=== PATIENT | male | born 1975 | race Caucasian/White ===

== ENCOUNTER → 2017-01-11 | Outpatient (CLI) | payer OTHER ==
--- NOTE | 2017-01-12 08:59 | KCIC ---
Examination: MRI of the right knee without contrast HISTORY: History of right knee pain COMPARISON: 07/10/2014 TECHNIQUE: Multiplanar, multisequence MR imaging of the right femur performed without contrast. FINDINGS: The anterior cruciate ligament, posterior cruciate ligament appear intact. The medial meniscus, lateral meniscus are intact. Extensor mechanism is intact. The medial collateral ligament is intact. The popliteus tendon appears intact. The lateral collateral ligament is intact. There is scarring changes are identified at the attachment of the biceps tendon and the lateral collateral ligament to the fibular head likely due to prior surgery. Small amount of fluid identified superficial to the lateral collateral ligamentous complex. The medial retinaculum, lateral retinaculum appears intact. Small knee joint effusion identified. Mild soft tissue edema identified superficial to the patella and infrapatellar tendon. The cartilage in the medial, lateral, patellofemoral compartments grossly appears unremarkable. IMPRESSION: 1. No evidence of internal derangement of the knee. 2. There is soft tissue irregularity identified at the distal attachment of the biceps tendon and the lateral collateral ligament to the fibula likely scarring change with small amount of edema identified superficial to the this region. 3. Minimal soft tissue edema identified anterior to the patella and infrapatellar tendon, nonspecific edema. 4. Minimal knee joint effusion. Electronically signed by: Jaspreet Flanagan MD (01/12/2017 8:55 AM) [id number]
== END | disposition home or self-care (01) ==
LOC: KCIC MRI 17:00
PROVIDERS: ATTEND Physician Assistant Medical
DX: M25.561 Pain in right knee (principal); M25.461 Effusion, right knee
CPT/HCPCS: 73721

== ENCOUNTER → 2021-04-18 | Outpatient (CLI) | payer OTHER ==
--- NOTE | 2021-04-18 14:04 | KCIC ---
MRI of the cervical spine without contrast 04/18/2021 CLINICAL HISTORY: Neck pain. History of previous cervical fusion. Left shoulder pain and left arm num bness for 2 weeks. TECHNIQUE: Unenhanced T1-weighted, T2-weighted and inversion recovery sagittal and gradient echo and T2-weighted axial images of the cervical spine were obtained. FINDINGS: There is mild straightening of the normal cervical lordosis. The patient is post anterior d iscectomy and fusion using an anterior plate, bone screws and bone graft material at C6-7. Degenerati ve signal changes are seen involving the remaining discs of the cervical spine. Degenerative signal c hanges are seen within the marrow surrounding these discs. Loss of height of the C5-6 and C7-T1 discs is noted. No area of abnormal signal intensity is seen involving the cervical spinal cord. At the C2-3, C3-4 and C4-5 disc spaces there are minimal to mild generalized disc bulges. Degenerativ e changes are seen involving the uncovertebral and facet joints bilaterally. These findings do not re sult in significant central spinal canal or neural foraminal stenosis. At the C5-6 disc space there is a mild to moderate generalized disc bulge. Superimposed on this disc bulge is a left paracentral focal disc protrusion. This measures 4 millimeters in AP diameter. Degene rative changes are seen involving the uncovertebral and facet joints, left greater than right. These findings when combined result in mild to moderate left greater than right central spinal canal stenos is. No significant impingement upon the cervical spinal cord is seen. Mild to moderate left greater t tobias right neural foraminal stenosis is seen. At the C6-7 level degenerative changes are seen involving the uncovertebral and facet joints bilatera lly. These findings do not result in significant central spinal canal or neural foraminal stenosis. At the C7-T1 disc space there is a mild generalized disc bulge. Degenerative changes are seen involvi ng the facet joints bilaterally. These findings do not result in significant central spinal canal or neural foraminal stenosis. IMPRESSION: 1. Post anterior discectomy and fusion at C6-7. 2. Degenerative changes are seen throughout the cervical spine. These findings result in mild to mode rate left greater than right central spinal canal stenosis at C5-6 without evidence of cord impingeme nt. Mild to moderate left greater than right neural foraminal stenosis is seen at C5-6. Electronically signed by: Darin Josue MD (04/18/2021 2:01 PM) [id number]
== END ==
LOC: KCIC MRI 12:18
PROVIDERS: ATTEND Physician Assistant Medical
DX: M47.812 Spondylosis without myelopathy or radiculopathy, cervical region (principal); M48.02 Spinal stenosis, cervical region; M50.21 Other cervical disc displacement, high cervical region; Z98.1 Arthrodesis status
CPT/HCPCS: 72141